=== PATIENT | female | born 1995 | race Caucasian/White ===

== ENCOUNTER 2020-06-28 22:33 | Emergency (ER) | payer BC ==
[2020-06-28 22:55] VITALS: BP 103/72; PULSE 80; TEMP 98.1; BMI 19.1
[2020-06-28] MEDS ORDERED: ACETAMINOPHEN 325 MG TABLET (FP) PO ONE (23:36)
[2020-06-28] MEDS ORDERED: ACETAMINOPHEN 325 MG TABLET (FP) ONE (23:41)
== END 2020-06-29 00:01 | disposition home or self-care (01) ==
LOC: FER 22:33
DX: M79.602 Pain in left arm (principal)
CPT/HCPCS: 73070-TC-LT-FY; 73110-TC-LT-FY; 99284-25

== ENCOUNTER 2021-01-29 18:13 | Emergency (ER) | payer BC ==
[2021-01-29 18:22] VITALS: BP 100/64
[2021-01-29] MEDS ORDERED: ONDANSETRON 4 MG/2 ML VIAL IVPUSH ONE (18:23)
[2021-01-29] MEDS ORDERED: ACETAMINOPHEN 1000 MG/100 ML VIAL IVPB ONE (18:23)
[2021-01-29] MEDS ORDERED: SODIUM CHLORIDE 0.9% 500 ML INFUS.BAG IV ONE (18:23)
[2021-01-29] MEDS ORDERED: ACETAMINOPHEN INJECTION 100 ML IVPB ONE (18:29)
[2021-01-29] MEDS ORDERED: ONDANSETRON 4 MG/2 ML VIAL ONE (18:30)
[2021-01-29 19:01] LABS: BASO % 3.2 % (0-2.0); EOS % 0.3 % (0-4.5); HEMATOCRIT 39.2 % (32.4-45.2); HEMOGLOBIN 13.2 GM/dl (10.7-15.3); LYMPH % 3.1 % (8-40); MCH 31.3 pg (25.7-33.7); MCHC 33.8 g/dl (32.0-36.0); MEAN CELL VOLUME 92.7 fl (80-96); MONO % 3.8 % (3.8-10.2); NEUT % 89.6 % (42.8-82.8); PLATELET COUNT 195 10^3/uL (134-434); RBC 4.23 M/mm3 (3.60-5.2); RDW 12.9 % (11.6-15.6); WHITE BLOOD COUNT 11.1 K/mm3 (4.0-10.8)
[2021-01-29 19:13] LABS: CALCIUM 8.8 mg/dl (8.5-10); CREATININE 0.6 mg/dl (0.55-1.3)
[2021-01-29] MEDS ORDERED: SODIUM CHLORIDE 1,000 ML IV STA (19:22)
[2021-01-29 19:30] VITALS: PULSE 116; TEMP 99.7
== END 2021-01-29 20:00 | disposition home or self-care (01) ==
LOC: FER 18:13
PROC: 3E033GC Introduction of Other Therapeutic Substance into Peripheral Vein, Percutaneous Approach (ICD-10-PCS; principal; 2021-01-29)
DX: B34.9 Viral infection, unspecified (principal)
CPT/HCPCS: 36415; 80048; 85025; 99284-25; C9803; J0131; U0003; U0005

== ENCOUNTER 2021-11-19 09:09 | Emergency (ER) | payer BC ==
[2021-11-19 09:31] VITALS: BP 99/64; PULSE 80; RESP 16; TEMP 99.5; BMI 19.3
[2021-11-19] MEDS ORDERED: DEXAMETHASONE SOD PHOSPHATE 10 MG/1 ML VIAL PO ONE (10:52)
[2021-11-19] MEDS ORDERED: DEXAMETHASONE SOD PHOSPHATE 10 MG/1 ML VIAL ONE (11:20)
[2021-11-19] MEDS ORDERED: CLINDAMYCIN HCL 150 MG CAPSULE (FP) PO ONE (11:33)
[2021-11-19] MEDS ORDERED: CLINDAMYCIN HCL 150 MG CAPSULE (FP) ONE (11:44)
== END 2021-11-19 11:54 | disposition home or self-care (01) ==
LOC: FER 09:09
DX: J02.0 Streptococcal pharyngitis (principal)
CPT/HCPCS: 0241U-QW; 36415; 86308; 87651; 99283-25; J1100

== ENCOUNTER 2023-02-23 10:57 | Emergency (ER) | payer SELFPAY ==
[2023-02-23 11:06] VITALS: BP 101/63; PULSE 74; RESP 15; TEMP 99.1; BMI 20.4
== END 2023-02-23 11:24 | disposition home or self-care (01) ==
LOC: FER 10:57
DX: R05.9 Cough, unspecified (principal); R07.9 Chest pain, unspecified; J06.9 Acute upper respiratory infection, unspecified; Z20.822 Contact with and (suspected) exposure to COVID-19
CPT/HCPCS: 0241U-QW; 99283-25